=== PATIENT | male | born 1990 | race Hispanic/Latino ===

== ENCOUNTER 2023-04-10 22:43 | Emergency (ER) | payer SELFPAY ==
--- OUTSIDE RECORDS SUMMARY | 2023-04-10 22:45 | XMS REPORT | Continuity of Care Document ---
:1990 Author Organization [facility] t Address [address] [place] [id number] Care Team Providers Name Role Phone Unavailable Unavailable Unavailable Problems This patient has no known problems. Allergies, Adverse Reactions, Alerts This patient has no known allergies or adverse reactions. Medications This patient has no known medications. Procedures This patient has no known procedures. Results This patient has no known results.
--- NOTE | 2023-04-10 23:22 | ER ---
Nurse's Notes [facility] Name: Kit Zhu Jr Age: 32 yrs Sex: Male : 1990 Arrival Date: 04/10/2023 Time: 22:43 Bed 7 Private MD: Diagnosis: Low back pain Presentation: 04/10 22:54 Chief complaint: Patient states: "1 week ago, I woke up to back pain on my left side. mb9 It starting radiating down my left leg and hurts when I bend or turn certain ways". Coronavirus screen: Vaccine status: Patient reports being unvaccinated. Ebola Screen: No symptoms or risks identified at this time. Initial Sepsis Screen: Does the patient meet any 2 criteria? No. Patient's initial sepsis screen is negative. Does the patient have a suspected source of infection? No. Patient's initial sepsis screen is negative. Risk Assessment: Do you want to hurt yourself or someone else? Patient reports no desire to harm self or others. Onset of symptoms was 2022. 22:54 Method Of Arrival: Ambulatory mb9 22:54 Acuity: ENRICO 4 mb9 Triage Assessment: 22:57 General: Appears in no apparent distress. Behavior is cooperative. Pain: Complains of mb9 pain in back Pain radiates to left leg Pain began suddenly, Is intermittent, Aggravated by repositioning. Neuro: Sy Agitation-Sedation Scale (RASS): 0 - Alert and Calm Level of Consciousness is awake, alert, obeys commands, Oriented to person, place, time, situation, Appropriate for age. Cardiovascular: Patient's skin is warm and dry. Respiratory: Airway is patent Respiratory effort is even, unlabored, Respiratory pattern is regular, symmetrical. : Denies burning with urination, urinary frequency, urgency. Derm: Skin is pink, warm \\T\\ dry. Musculoskeletal: Range of motion: intact in all extremities, Reports pain in back. Historical: - Allergies: 22:56 NKA; mb9 - Home Meds: 22:56 None [Active]; mb9 - PMHx: 22:56 epilepsy; mb9 - PSHx: 22:56 None; mb9 - Immunization history:: Adult Immunizations up to date. - Social history:: Smoking status: Reported history of juuling and/or vaping. Screenin:58 [facility] ED Fall Risk Assessment (Adult) History of falling in the last 3 months, mb9 including since admission No falls in past 3 months (0 pts) Confusion or Disorientation No (0 pts) Intoxicated or Sedated No (0 pts) Impaired Gait No (0 pts) Mobility Assist Device Used No (0 pt) Altered Elimination No (0 pt) Score/Fall Risk Level 0 - 2 = Low Risk Oriented to surroundings, Maintained a safe environment, Educated pt \\T\\ family on fall prevention, incl call for assistance when getting out of bed. Abuse screen: Denies threats or abuse. Nutritional screening: No deficits noted. Tuberculosis screening: No symptoms or risk factors identified. Assessment: 22:58 Reassessment: see triage assessment. mb9 Vital Signs: 22:54 BP 137 / 102; Pulse 83; Resp 20; Temp 98.4; Pulse Ox 98% on R/A; Weight 136.08 kg; mb9 Height 6 ft. 0 in. ; Pain 8/10; 22:54 Body Mass Index 40.69 (136.08 kg, 182.88 cm) mb9 22:54 Pain Scale: Adult mb9 ED Course: 22:47 Patient arrived in ED. ja2 22:56 Triage completed. mb9 22:56 Arm band placed on. mb9 22:58 Placed in gown. Bed in low position. Call light in reach. Side rails up X 1. Client mb9 placed on continuous cardiac and pulse oximetry monitoring. NIBP monitoring applied. 23:00 Luís Irwin PA is PHCP. cp 23:00 Ronald Ramos MD is Attending Physician. cp 23:28 Silviano Stauffer, ARIELA is Primary Nurse. rv 23:30 No provider procedures requiring assistance completed. Patient did not have IV access ll3 during this emergency room visit. Administered Medications: 23:30 Drug: Lidoderm Topical Patch 5 % (700 mg/patch) 1 patches Route: Topical; Site: ll3 affected area; 23:30 Follow up: Response: Medication administered at discharge. ll3 Medication: 22:58 VIS not applicable for this client. mb9 Outcome: 23:22 Discharge ordered by . cp 23:30 Discharged to home ambulatory. ll3 23:30 Condition: stable 23:30 Discharge instructions given to patient, Instructed on discharge instructions, follow up and referral plans. medication usage, Demonstrated understanding of instructions, follow-up care, medications, Prescriptions given X 2. 23:30 Patient left the ED. ll3 Signatures: Luís Irwin PA PA cp Vicente, Ronaldo, RN RN Anisha Gallo Lynsea, RN RN ll3 Daysi Vora RN RN mb9
--- NOTE | 2023-04-10 23:22 | EDPHYS ---
Physician Documentation [facility] Name: Kit Zhu Jr Age: 32 yrs Sex: Male : 1990 Arrival Date: 04/10/2023 Time: 22:43 Bed 7 Private MD: ED Physician Ronald Ramos HPI: 04/10 23:15 This 32 yrs old Male presents to ER via Ambulatory with complaints of Back cp Pain, Leg Pain. 23:15 The patient presents with pain that is acute, with no known mechanism of injury. The cp symptoms are located in the left lower back. Onset: The symptoms/episode began/occurred 1 week(s) ago. 1 episode where pain radiated down back of left upper leg. Associated signs and symptoms: Pertinent negatives: abdominal pain, constipation, dysuria, fever, hematuria, incontinence, numbness, tingling, urinary retention, weakness. The problem was sustained from unknown cause, started 1 week ago upon awakening. Modifying factors: the patient symptoms are aggravated by bending. Severity of symptoms: in the emergency department the symptoms have improved, markedly, patient reports no pain currently. 23:15 Patient denies fever, chills, history of IV drug use. cp Historical: - Allergies: 22:56 NKA; mb9 - Home Meds: 22:56 None [Active]; mb9 - PMHx: 22:56 epilepsy; mb9 - PSHx: 22:56 None; mb9 - Immunization history:: Adult Immunizations up to date. - Social history:: Smoking status: Reported history of juuling and/or vaping. ROS: 23:20 Constitutional: Negative for body aches, chills, fever, poor PO intake. cp 23:20 Respiratory: Negative for cough, shortness of breath, wheezing. 23:20 Abdomen/GI: Negative for abdominal pain, nausea, vomiting, and diarrhea, constipation, bowel incontinence. 23:20 Back: Positive for pain with movement, of the left low back, Negative for injury or acute deformity, decreased range of motion. 23:20 Cardiovascular: Negative for chest pain, palpitations. cp 23:20 : Negative for urinary symptoms, hematuria, difficulty urinating, bladder incontinence, testicular pain 23:20 Skin: Negative for rash. 23:20 Neuro: Negative for dizziness, numbness, tingling, weakness. 23:20 All other systems are negative. Exam: 23:21 Head/Face: Normocephalic, atraumatic. cp 23:21 Constitutional: The patient appears in no acute distress, alert, awake, non-toxic, well developed, well nourished, obese. 23:21 Eyes: Periorbital structures: appear normal, Conjunctiva: normal, no exudate, no cp injection, Sclera: no appreciated abnormality, Lids and lashes: appear normal, bilaterally. 23:21 ENT: External ear(s): are unremarkable, Nose: is normal, Mouth: Lips: moist, Oral mucosa: moist, Posterior pharynx: is normal, airway is patent, no erythema, no exudate. 23:21 Neck: ROM/movement: is normal, is supple, without pain, no range of motions limitations. 23:21 Chest/axilla: Inspection: normal. 23:21 Cardiovascular: Rate: normal, Rhythm: regular. 23:21 Respiratory: the patient does not display signs of respiratory distress, Respirations: normal, no use of accessory muscles, no retractions, labored breathing, is not present, Breath sounds: are clear throughout, no decreased breath sounds, no stridor, no wheezing. 23:21 Abdomen/GI: Inspection: obese Palpation: abdomen is soft and non-tender, in all quadrants. 23:21 Back: pain, is absent, of the left low back, ROM is normal. 23:21 Neuro: Orientation: to person, place \T\ time. Mentation: is normal, Motor: moves all fours, strength is normal, Sensation: is normal, Gait: is steady, at a normal pace, without difficulty, Deep tendon reflexes are 2+ (normal) in the right patellar, right Achilles, left patellar and left Achilles. Vital Signs: 22:54 BP 137 / 102; Pulse 83; Resp 20; Temp 98.4; Pulse Ox 98% on R/A; Weight 136.08 kg; mb9 Height 6 ft. 0 in. ; Pain 8/10; 22:54 Body Mass Index 40.69 (136.08 kg, 182.88 cm) mb9 22:54 Pain Scale: Adult mb9 MDM: 23:00 Patient medically screened. cp 23:22 Data reviewed: vital signs, nurses notes. cp 23:22 Differential diagnosis: ruptured disc, Ureterolithiasis muscle strain, bulging disc, cp sciatica. Test considered but Not performed: X-ray: lumbar spine. Counseling: I had a detailed discussion with the patient and/or guardian regarding: the historical points, exam findings, and any diagnostic results supporting the discharge/admit diagnosis, to return to the emergency department if symptoms worsen or persist or if there are any questions or concerns that arise at home. Administered Medications: 23:30 Drug: Lidoderm Topical Patch 5 % (700 mg/patch) 1 patches Route: Topical; Site: ll3 affected area; 23:30 Follow up: Response: Medication administered at discharge. ll3 Disposition Summary: 04/10/23 23:22 Discharge Ordered Location: Home cp Problem: new cp Symptoms: have improved cp Condition: Stable cp Diagnosis - Low back pain cp Followup: cp - With: Private Physician - When: 2 - 3 days - Reason: Worsening of condition Discharge Instructions: - Discharge Summary Sheet cp - Acute Back Pain, Adult cp Forms: - Medication Reconciliation Form cp - Thank You Letter cp - Antibiotic Education cp - Prescription Opioid Use cp Prescriptions: - Cyclobenzaprine 10 mg Oral Tablet - take 1 tablet by ORAL route every 8 hours As needed; 30 tablet; Refills: 0, cp Product Selection Permitted - Diclofenac Sodium 75 mg Oral Tablet Sustained Release - take 1 tablet by ORAL route 2 times per day; 30 tablet; Refills: 0, Product cp Selection Permitted Addendum: 04/12/2023 02:36 Co-signature as Attending Physician, Ronald Ramos MD I agree with the assessment s p4 and plan of care. I reviewed the patient's care provided by the Advanced Practice Provider and agree with the diagnosis and treatment plan. Signatures: Luís Irwin PA PA cp Livier Post RN RN ll3 Daysi Vora RN RN mb9 Ronald Ramos MD MD sp4 Corrections: (The following items were deleted from the chart) 04/11 23:13 04/10 23:20 Abdomen/GI: Negative for abdominal pain, nausea, vomiting, and diarrhea, cp cp 04/11 23:17 04/10 23:23 Eyes: Periorbital structures: appear normal, Conjunctiva: normal, no cp exudate, no injection, Sclera: no appreciated abnormality, Lids and lashes: appear normal, bilaterally, cp 04/11 23:04/10 23:23 ENT: External ear(s): are unremarkable, Nose: is normal, Mouth: Lips: cp moist, Oral mucosa: moist, Posterior pharynx: is normal, airway is patent, no erythema, no exudate, cp 04/11 23:04/10 23:23 Neck: ROM/movement: is normal, is supple, without pain, no range of motions cp limitations, cp 04/11 23:04/10 23:23 Chest/axilla: Inspection: normal, cp cp 04/11 23:04/10 23:23 Cardiovascular: Rate: normal, Rhythm: regular, cp cp 04/11 23:04/10 23:23 Respiratory: the patient does not display signs of respiratory distress, cp Respirations: normal, no use of accessory muscles, no retractions, labored breathing, is not present, Breath sounds: are clear throughout, no decreased breath sounds, no stridor, no wheezing, cp 04/11 23:04/10 23:23 Abdomen/GI: Inspection: obese Palpation: abdomen is soft and non-tender, in cp all quadrants, cp 04/11 23:04/10 23:23 Back: pain, is absent, of the left low back, ROM is normal, cp cp 04/11 23:04/10 23:23 Neuro: Orientation: to person, place \T\ time. Mentation: is normal, Motor: cp moves all fours, strength is normal, Sensation: is normal, Gait: is steady, at a normal pace, without difficulty, Deep tendon reflexes are 2+ (normal) in the right patellar, right Achilles, left patellar and left Achilles, cp 04/11 23:04/10 23:15 Severity of symptoms: in the emergency department the symptoms have cp improved, moderately, cp
[2023-04-10] MEDS ORDERED: LIDOCAINE 4% PATCH ONE (23:34)
[2023-04-11 00:36] VITALS: BP 137/102; TEMP 98.4; O2SAT 98
== END 2023-04-10 23:30 | disposition home or self-care (01) ==
LOC: ER 22:43
DX: M54.50 Low back pain, unspecified (principal)
CPT/HCPCS: 99283; J2001

== ENCOUNTER 2023-05-20 00:17 | Emergency (ER) | payer SELFPAY ==
--- OUTSIDE RECORDS SUMMARY | 2023-05-20 00:19 | XMS REPORT | Continuity of Care Document ---
:1990 Author Organization [facility] t Address [address] [place] [id number] Care Team Providers Name Role Phone Unavailable Unavailable Unavailable Problems This patient has no known problems. Allergies, Adverse Reactions, Alerts This patient has no known allergies or adverse reactions. Medications This patient has no known medications. Procedures This patient has no known procedures. Results This patient has no known results.
[2023-05-20] MEDS ORDERED: FAMOTIDINE 20 MG TAB ONE (00:53)
[2023-05-20] MEDS ORDERED: DIPHENHYDRAMINE 25 MG TAB/CAP ONE (00:53)
[2023-05-20] MEDS ORDERED: predniSONE 20 MG TAB ONE (00:54)
--- NOTE | 2023-05-20 01:40 | EDPHYS ---
Physician Documentation [facility] Name: Kit Zhu Jr Age: 32 yrs Sex: Male : 1990 Arrival Date: 05/20/2023 Time: 00:17 Bed 8 Private MD: ED Physician Lam Ordoñez HPI: 05/20 00:45 This 32 yrs old Male presents to ER via Ambulatory with complaints of Allergic cp Reaction. 00:45 The patient presents with throat closing, generalized burning. Onset: The cp symptoms/episode began/occurred suddenly, just prior to arrival. Associated signs and symptoms: Pertinent positives: dysphagia, Pertinent negatives: abdominal pain, chest pain, fever, hives, rash, vomiting. Possible causes: C4 energy drink that was different flavor than he usually consumes. At home the patient or guardian has treated the symptoms with nothing. Severity of symptoms: in the emergency department the symptoms have improved mildly. 00:45 The patient has not experienced similar symptoms in the past. cp Historical: - Allergies: 00:40 Shrimp; jb4 - Home Meds: 00:40 None [Active]; jb4 - PMHx: 00:40 epilepsy; jb4 - PSHx: 00:40 None; jb4 - Immunization history:: Adult Immunizations up to date. - Social history:: Smoking status: Patient denies any tobacco usage or history of. ROS: 00:50 Constitutional: Negative for body aches, chills, fever, poor PO intake. cp 00:50 Eyes: Negative for injury, pain, redness, and discharge. cp 00:50 ENT: Negative for drainage from ear(s), ear pain, sore throat, difficulty swallowing, difficulty handling secretions. 00:50 Cardiovascular: Negative for chest pain, edema, palpitations. 00:50 Respiratory: Negative for cough, shortness of breath, wheezing. 00:50 Abdomen/GI: Negative for abdominal pain, nausea, vomiting, and diarrhea. 00:50 Skin: Negative for rash. 00:50 Neuro: Negative for altered mental status, dizziness, headache, syncope, weakness. 00:50 All other systems are negative. Exam: 00:55 Constitutional: The patient appears in no acute distress, alert, awake, comfortable, cp non-diaphoretic, non-toxic, well developed, well nourished, obese. 00:55 Head/Face: Normocephalic, atraumatic. cp 00:55 Eyes: Periorbital structures: appear normal, Conjunctiva: normal, no exudate, no injection, Sclera: no appreciated abnormality, Lids and lashes: appear normal, bilaterally. 00:55 ENT: External ear(s): are unremarkable, Nose: is normal, Mouth: Lips: moist, Oral mucosa: pink and intact, moist, Posterior pharynx: is normal, airway is patent, no erythema, no exudate. 00:55 Neck: ROM/movement: is normal, is supple, without pain, no range of motions limitations, no meningismus, no nuchal rigidity. 00:55 Chest/axilla: Inspection: normal. 00:55 Cardiovascular: Rate: normal, Rhythm: regular. 00:55 Respiratory: the patient does not display signs of respiratory distress, Respirations: normal, no use of accessory muscles, no retractions, labored breathing, is not present, Breath sounds: are clear throughout, no decreased breath sounds, no stridor, no wheezing. 00:55 Abdomen/GI: Exam negative for discomfort, distension, guarding, Inspection: obese 00:55 Skin: no rash present. 00:55 Neuro: Orientation: to person, place \T\ time. Mentation: is normal, Motor: moves all fours, strength is normal, Sensation: is normal. Vital Signs: 00:37 BP 180 / 115; Pulse 88; Resp 16; Temp 98.5(O); Pulse Ox 95% on R/A; Weight 136.08 kg jb4 (R); Height 6 ft. 0 in. ; Pain 0/10; 01:35 BP 123 / 91; Pulse 80; Resp 16; Pulse Ox 98% on R/A; jb4 00:37 Body Mass Index 40.69 (136.08 kg, 182.88 cm) jb4 00:37 Pain Scale: Adult jb4 MDM: 00:31 Patient medically screened. cp 01:40 Data reviewed: vital signs, nurses notes. cp 01:40 Differential diagnosis: anaphylaxis, angioedema, urticaria. Consideration of cp Admission/Observation Escalation of care including admission/observation considered. I considered the following discharge prescriptions or medication management in the emergency department Medications were administered in the Emergency Department. See MAR. Counseling: I had a detailed discussion with the patient and/or guardian regarding: the historical points, exam findings, and any diagnostic results supporting the discharge/admit diagnosis, to return to the emergency department if symptoms worsen or persist or if there are any questions or concerns that arise at home. Response to treatment: the patient's symptoms have markedly improved after treatment, and as a result, I will discharge patient. Administered Medications: 00:48 Drug: diphenhydrAMINE PO 50 mg Route: PO; jb4 00:48 Drug: predniSONE PO 60 mg Route: PO; jb4 00:48 Drug: Famotidine PO 20 mg Route: PO; jb4 Disposition Summary: 05/20/23 01:40 Discharge Ordered Location: Home cp Problem: new cp Symptoms: have improved cp Condition: Stable cp Diagnosis - Allergy to other foods cp Followup: cp - With: Private Physician - When: 1 - 2 days - Reason: Recheck today's complaints Discharge Instructions: - Discharge Summary Sheet cp - Food Allergy cp Forms: - Medication Reconciliation Form cp - Thank You Letter cp - Antibiotic Education cp - Prescription Opioid Use cp - [email or web address] cp - Work release form jb4 Prescriptions: - Pepcid 20 mg Oral Tablet - take 1 tablet by ORAL route every 12 hours for 5 days; 10 tablet; Refills: 0, cp Product Selection Permitted - Zyrtec 10 mg Oral Tablet - take 1 tablet by ORAL route once daily As needed; 20 tablet; Refills: 0, cp Product Selection Permitted - Prednisone 20 mg Oral Tablet - take 3 tablet by ORAL route once daily for 5 days; 15 tablet; Refills: 0, cp Product Selection Permitted Signatures: Luís Irwin PA PA cp Bryson, James, RN RN jb4
--- NOTE | 2023-05-20 01:40 | ER ---
Nurse's Notes [facility] Name: Kit Zhu Jr Age: 32 yrs Sex: Male : 1990 Arrival Date: 05/20/2023 Time: 00:17 Bed 8 Private MD: Diagnosis: Allergy to other foods Presentation: 05/20 00:37 Chief complaint: Patient states: I drank a C4 energy drink and it was a different jb4 flavor than normal. I felt like my throat was closing and I had burning goose bumps. I no longer have the burn and my throat is feeling better. Coronavirus screen: At this time, the client does not indicate any symptoms associated with coronavirus-19. Ebola Screen: No symptoms or risks identified at this time. Onset: The symptoms/episode began/occurred suddenly. Anaphylaxis evaluation, Pt reports tightening of the throat. Airway is clear. Initial Sepsis Screen: Does the patient meet any 2 criteria? No. Patient's initial sepsis screen is negative. Does the patient have a suspected source of infection? No. Patient's initial sepsis screen is negative. Risk Assessment: Do you want to hurt yourself or someone else? Patient reports no desire to harm self or others. Onset of symptoms was May 20, 2023. Transition of care: patient was not received from another setting of care. 00:37 Method Of Arrival: Ambulatory jb4 00:37 Acuity: ENRICO 3 jb4 Historical: - Allergies: 00:40 Shrimp; jb4 - Home Meds: 00:40 None [Active]; jb4 - PMHx: 00:40 epilepsy; jb4 - PSHx: 00:40 None; jb4 - Immunization history:: Adult Immunizations up to date. - Social history:: Smoking status: Patient denies any tobacco usage or history of. Screenin:41 [facility] ED Fall Risk Assessment (Adult) History of falling in the last 3 months, jb4 including since admission No falls in past 3 months (0 pts) Confusion or Disorientation No (0 pts) Score/Fall Risk Level 0 - 2 = Low Risk Oriented to surroundings, Maintained a safe environment. Abuse screen: Denies threats or abuse. Nutritional screening: No deficits noted. Tuberculosis screening: No symptoms or risk factors identified. Assessment: 00:41 General: Appears in no apparent distress. comfortable, Behavior is calm, cooperative, jb4 appropriate for age. Pain: Denies pain. Neuro: Level of Consciousness is awake, alert, obeys commands, Oriented to person, place, time, situation. Cardiovascular: Patient's skin is warm and dry. Respiratory: Airway is patent Respiratory effort is even, unlabored, Respiratory pattern is regular, symmetrical. GI: No signs and/or symptoms were reported involving the gastrointestinal system. : EENT: Throat is clear. Derm: No signs and/or symptoms reported regarding the dermatologic system. Musculoskeletal: Circulation, motion, and sensation intact. Range of motion: intact in all extremities. 01:35 Reassessment: Patient appears in no apparent distress at this time. Patient and/or jb4 family updated on plan of care and expected duration. Pain level reassessed. Patient is alert, oriented x 3, equal unlabored respirations, skin warm/dry/pink. Vital Signs: 00:37 BP 180 / 115; Pulse 88; Resp 16; Temp 98.5(O); Pulse Ox 95% on R/A; Weight 136.08 kg jb4 (R); Height 6 ft. 0 in. ; Pain 0/10; 01:35 BP 123 / 91; Pulse 80; Resp 16; Pulse Ox 98% on R/A; jb4 00:37 Body Mass Index 40.69 (136.08 kg, 182.88 cm) jb4 00:37 Pain Scale: Adult jb4 ED Course: 00:26 Patient arrived in ED. jj6 00:27 Luís Irwin PA is PHCP. cp 00:27 Lam Ordoñez MD is Attending Physician. cp 00:37 Suresh Morillo, ARIELA is Primary Nurse. jb4 00:40 Triage completed. jb4 00:40 Arm band placed on right wrist. jb4 00:41 Patient has correct armband on for positive identification. Bed in low position. Call jb4 light in reach. Side rails up X 1. Client placed on continuous cardiac and pulse oximetry monitoring. NIBP monitoring applied. 01:44 No provider procedures requiring assistance completed. Patient did not have IV access jb4 during this emergency room visit. Administered Medications: 00:48 Drug: diphenhydrAMINE PO 50 mg Route: PO; jb4 00:48 Drug: predniSONE PO 60 mg Route: PO; jb4 00:48 Drug: Famotidine PO 20 mg Route: PO; jb4 Medication: 00:41 VIS not applicable for this client. jb4 Outcome: 01:40 Discharge ordered by . debbie 01:44 Discharged to home ambulatory. jb4 01:44 Condition: stable 01:44 Discharge instructions given to patient, Instructed on discharge instructions, follow up and referral plans. medication usage, Demonstrated understanding of instructions, follow-up care, medications, Prescriptions given X 3. 01:44 Patient left the ED. jb4 Signatures: Luís Irwin PA PA cp Bryson, James, RN RN jb4 Dana Shaw jj6
[2023-05-20 01:49] VITALS: TEMP 98.5
[2023-05-20 01:51] VITALS: BP 123/91; O2SAT 98
== END 2023-05-20 01:44 | disposition home or self-care (01) ==
LOC: ER 00:17
DX: R13.10 Dysphagia, unspecified (principal); Z91.018 Allergy to other foods
CPT/HCPCS: 99283; J7512

== ENCOUNTER 2024-07-18 01:26 | Emergency (ER) | payer OTHER, SELFPAY ==
--- OUTSIDE RECORDS SUMMARY | 2024-07-18 01:28 | XMS REPORT | Continuity of Care Document ---
Author Name Unknown Address [address] [place] [address] [place] [address] [employer] Address [address] [facility] [address] [place] [address] Care Team Providers Care Pastry Cook Helper Name Role Phone Unavailable Unavailable Unavailable
[2024-07-18] MEDS ORDERED: ACETAMINOPHEN 500 MG TAB ONE (01:55)
[2024-07-18] MEDS ORDERED: BENZONATATE 100 MG CAP PO ONE (01:55)
[2024-07-18] MEDS ORDERED: IBUPROFEN 400 MG TAB ONE (01:55)
[2024-07-18] MEDS ORDERED: DIPHENHYDRAMINE 25 MG TAB/CAP ONE (01:55)
[2024-07-18] MEDS ORDERED: LOSARTAN POTASSIUM 50 MG TABLET ONE (01:56)
[2024-07-18] MEDS ORDERED: GUAIFENESIN/DM 5 ML UCUP ONE (01:56)
[2024-07-18] MEDS ORDERED: CEPHALEXIN 250 MG CAP ONE (01:58)
[2024-07-18 02:18] LABS: SARS-CoV-2 Antigen CONTROL BLUE LINE VIS/BG OK; SARS-CoV-2 Antigen Rapid Res Negative (Negative)
[2024-07-18 02:18] LABS: Absolute Basophils 0.1 K/uL (0-0.5); Absolute Eosinophils 0.2 K/uL (0-0.5); Absolute Lymphocytes (CBC) 1.6 K/uL (0.7-4.9); Absolute Monocytes 0.7 K/uL (0.1-1.3); Absolute Neutrophil 6.3 K/uL (1.8-8.0); Basophils % 0.8 % (0-1.3); Hematocrit 45.7 % (39.6-49.0); Hemoglobin 15.7 g/dL (13.6-17.9); Lymphocytes % 18.5 % (15.3-44.8); MCH 29.9 pg (27.0-35.0); MCHC 34.3 g/dL (32.0-36.0); MCV 87.1 fL (80-100); MPV 9.2 fL (7.6-11.3); Monocytes % 7.5 % (3.3-12.3); Neutrophils % 71.2 % (41.7-73.7); Nucleated Red Blood Cells % 0.2 % (0-0); Platelets 237 thou/uL (152-406); RBC Red Blood Cell Count 5.24 M/uL (4.33-5.43); Red Cell Distribution Width 13.1 % (12.1-15.2)
[2024-07-18 02:31] LABS: Albumin 3.9 g/dL (3.4-5.0); Anion Gap 9.7 mEq/L (5.0-15.0); Bilirubin Total 0.4 mg/dL (0.2-1.0); Potassium 3.7 mEq/L (3.5-5.1); Protein, Total 7.9 g/dL (6.4-8.2)
--- NOTE | 2024-07-18 02:45 | EDPHYS ---
Physician Documentation [facility] Name: Kit Zhu Jr Age: 34 yrs Sex: Male : 1990 Arrival Date: 07/18/2024 Time: 01:26 Bed 6 Private MD: ED Physician Ronald Ramos HPI: 07/18 01:30 This 34 yrs old Male presents to ER via Unassigned with complaints of sp4 Shortness Of Breath, Cough, Congestion, Sore Throat, Dizziness. 03:55 34-year-old male with history of uncontrolled hypertension presents with 4 days of sp4 cough congestion short of breath and sore throat.. Historical: - Allergies: 01:44 NKA; jj7 - PMHx: 01:44 epilepsy; Hypertensive disorder; jj7 - PSHx: 01:44 None; jj7 - Immunization history:: Adult Immunizations not up to date, Client reports having NOT received the Covid vaccine. - Infectious Disease History:: Denies. - Social history:: Smoking status: Reported history of juuling and/or vaping. Patient/guardian denies using alcohol, street drugs. - Family history:: not pertinent. ROS: 03:55 Constitutional: Negative for fever, chills, and weight loss, positive cough, positive sp4 congestion, positive sore throat, positive shortness of breath 03:55 All other systems are negative, Exam: 03:55 Constitutional: This is a well developed, well nourished patient who is awake, alert, sp4 and in no acute distress. Head/Face: Normocephalic, atraumatic. Eyes: Pupils equal round and reactive to light, extra-ocular motions intact. Lids and lashes normal. Conjunctiva and sclera are not injected. Cornea within normal limits. Periorbital areas with no swelling, redness, or edema. ENT: Nares patent. No nasal discharge, no septal abnormalities noted. Tympanic membranes are normal and external auditory canals are clear. Oropharynx with no redness, swelling, or masses, exudates, or evidence of obstruction, uvula midline. Mucous membranes moist. Neck: Trachea midline, no thyromegaly or masses palpated, and no cervical lymphadenopathy. Supple, full range of motion without nuchal rigidity, or vertebral point tenderness. Chest/axilla: Normal chest wall appearance and motion. Nontender with no deformity. No lesions are appreciated. Cardiovascular: Regular rate and rhythm with a normal S1 and S2. No gallops, murmurs, or rubs. Normal PMI, no JVD. No pulse deficits. Respiratory: Lungs have equal breath sounds bilaterally, clear to auscultation and percussion. No rales, rhonchi or wheezes noted. No increased work of breathing, no retractions or nasal flaring. Abdomen/GI: Soft, with normal bowel sounds. No distension or tympany. No guarding or rebound. No evidence of tenderness throughout. Back: No spinal tenderness. No costovertebral tenderness. Skin: Warm, dry with normal turgor. Normal color with no rashes, no lesions, and no evidence of cellulitis. MS/ Extremity: Pulses equal, no cyanosis. Neurovascular intact. Full, normal range of motion. Neuro: Awake and alert, GCS 15, oriented to person, place, time, and situation. Cranial nerves II-XII grossly intact. Motor strength 5/5 in all extremities. Sensory grossly intact. Psych: Awake, alert, with orientation to person, place and time. Behavior, mood, and affect are within normal limits 04:21 ECG was reviewed by the Attending Physician. EKG at 0 146 reveals normal sinus rhythm sp4 rate 82. Otherwise normal EKG Vital Signs: 01:41 BP 174 / 112; Pulse 86; Resp 16; Temp 97.4; Pulse Ox 98% ; Weight 136.08 kg; Height 6 jj7 ft. 0 in. ; 02:35 BP 161 / 102; Pulse 78; Resp 17 S; Temp 98.1(O); Pulse Ox 98% on R/A; ha1 01:41 Body Mass Index 40.69 (136.08 kg, 182.88 cm) jj7 [place] Coma Score: 03:55 Eye Response: spontaneous(4). Motor Response: obeys commands(6). Verbal Response: sp4 oriented(5). Total: 15. MDM: 02:45 Patient medically screened. sp4 03:55 Differential diagnosis: Anxiety Reaction asthma, Bronchitis Psychogenic reactive airway sp4 disease. Data reviewed: vital signs, nurses notes, old medical records, lab test result(s), CBC, electrolytes. ED course: Patient stable for discharge home with management for acute bronchitis also losartan for history of uncontrolled hypertension. Advise close follow-up with primary care physician for hypertension management. . 07/18 01:29 Order name: SARS RAPID; Complete Time: 02:40 sp4 07/18 01:42 Order name: CBC with Diff; Complete Time: 02:40 sp4 07/18 01:42 Order name: CMP; Complete Time: 02:40 sp4 07/18 01:42 Order name: IV Saline Lock; Complete Time: 02:03 sp4 07/18 01:42 Order name: Labs collected and sent; Complete Time: 02: sp4 07/18 01:50 Order name: EKG - Nurse/Tech; Complete Time: 01:50 ha1 EC:21 Rate is 82 beats/min. Rhythm is regular, Normal Sinus Rhythm. QRS [place] is Normal. RI sp4 interval is normal. QRS interval is normal. QT interval is normal. No Q waves. T waves are Normal. No ST changes noted. Clinical impression: Normal ECG. Interpreted by me. Reviewed by me. Administered Medications: 02:01 Drug: Acetaminophen PO 1000 mg PO once Route: PO; 7 02:30 Follow up: Response: No adverse reaction; Marked relief of symptoms ha1 02:01 Drug: Tessalon Perle PO 200 mg PO once Route: PO; 7 02:30 Follow up: Response: No adverse reaction; Marked relief of symptoms ha1 02:01 Drug: Cephalexin PO 500 mg PO once Route: PO; j7 02:30 Follow up: Response: No adverse reaction ha1 02:02 Drug: Losartan PO 100 mg PO once Route: PO; j7 02:30 Follow up: Response: No adverse reaction; Blood pressure is lowered ha1 02:02 Drug: diphenhydrAMINE PO 25 mg PO once Route: PO; j7 02:30 Follow up: Response: No adverse reaction; Marked relief of symptoms ha1 02:02 Drug: Dextromethorphan-Guaifenesin PO Liquid 10 mg-100 mg/5 mL 10 ml PO once Route: PO; j7 02:30 Follow up: Response: No adverse reaction; Marked relief of symptoms ha1 02:02 Drug: Ibuprofen PO 800 mg PO once Route: PO; jj7 02:30 Follow up: Response: No adverse reaction; Marked relief of symptoms ha1 Disposition Summary: 07/18/24 02:45 Discharge Ordered Notes: Location: Home sp4 Problem: new sp4 Symptoms: have improved sp4 Condition: Stable sp4 Diagnosis - Acute pharyngitis, unspecified sp4 - Acute bronchitis, unspecified sp4 - Essential (primary) hypertension sp4 Followup: sp4 - With: Private Physician - When: 7 - 10 days - Reason: Recheck today's complaints Discharge Instructions: - Discharge Summary Sheet sp4 - Hypertension, Adult, [id number] sp4 Forms: - Patient Portal Instructions sp4 Prescriptions: - dextromethorphan-guaifenesin 60-1,200 mg Oral Tablet, Extended Release 12 hr - take 1 tablet ORAL route every 12 hours as needed for flu symptoms; 40 tablet; sp4 Refills: 0, Product Selection Permitted - losartan 100 mg Oral tablet - take 1 tablet ORAL route every morning; 90 tablet; Refills: 0, Product sp4 Selection Permitted - Cephalexin 500 mg Oral Capsule - take 1 capsule ORAL route every 12 hours for 10 days; 20 capsule; Refills: 0, sp4 Product Selection Permitted - Ibuprofen 800 mg Oral Tablet - take 1 tablet ORAL route every 8 hours As needed take with food; 30 tablet; sp4 Refills: 0, Product Selection Permitted - Claritin 10 mg Oral tablet - take 1 tablet ORAL route once daily As needed; 30 tablet; Refills: 0, Product sp4 Selection Permitted Signatures: Dispatcher [employer] Nery Saba RN RN ha1 Jack Hanna RN RN jj7 Ronald Ramos MD MD sp4
--- NOTE | 2024-07-18 02:45 | ER ---
Nurse's Notes [facility] Name: Kit Zhu Jr Age: 34 yrs Sex: Male : 1990 Arrival Date: 07/18/2024 Time: 01:26 Bed 6 Private MD: Diagnosis: Acute pharyngitis, unspecified;Acute bronchitis, unspecified;Essential (primary) hypertension Presentation: 07/18 01:41 Chief complaint: Patient states: SORE THROAT, BODY ACHES, CONGESTION X4DAY. STARTED jj7 FEELING SOB AND DIZZY TONIGHT. Coronavirus screen: congestion, shortness of breath, sore throat. Ebola Screen: No symptoms or risks identified at this time. Initial Sepsis Screen: Does the patient meet any 2 criteria? No. Patient's initial sepsis screen is negative. Does the patient have a suspected source of infection? No. Patient's initial sepsis screen is negative. Risk Assessment: Do you want to hurt yourself or someone else? Patient reports no desire to harm self or others. Onset of symptoms was July 14, 2024. 01:41 Method Of Arrival: Ambulatory [facility] 01:41 Acuity: ENRICO 3 jj7 Triage Assessment: 01:41 General: Appears in no apparent distress. comfortable, Behavior is calm, cooperative, jj7 appropriate for age. Neuro: Reports dizziness, since LAST NIGHT. Respiratory: Reports shortness of breath Onset: The symptoms/episode began/occurred yesterday. Respiratory: Airway is patent Trachea midline Respiratory effort is even, unlabored, Respiratory pattern is regular, symmetrical, the patient has mild shortness of breath. Historical: - Allergies: 01:44 NKA; jj7 - PMHx: 01:44 epilepsy; Hypertensive disorder; jj7 - PSHx: 01:44 None; jj7 - Immunization history:: Adult Immunizations not up to date, Client reports having NOT received the Covid vaccine. - Infectious Disease History:: Denies. - Social history:: Smoking status: Reported history of juuling and/or vaping. Patient/guardian denies using alcohol, street drugs. - Family history:: not pertinent. Screenin:41 [facility] ED Fall Risk Assessment (Adult) History of falling in the last 3 months, jj7 including since admission No falls in past 3 months (0 pts) Confusion or Disorientation No (0 pts) Intoxicated or Sedated No (0 pts) Impaired Gait No (0 pts) Mobility Assist Device Used No (0 pt) Altered Elimination No (0 pt) Score/Fall Risk Level 0 - 2 = Low Risk Oriented to surroundings, Maintained a safe environment, Educated pt \T\ family on fall prevention, incl call for assistance when getting out of bed, Assessed \T\ reinforced patient's understanding of fall precautions. Abuse screen: Denies threats or abuse. Nutritional screening: No deficits noted. Tuberculosis screening: No symptoms or risk factors identified. Assessment: 01:41 Respiratory: Airway is patent Breath sounds are clear. jj7 02:30 Reassessment: Patient and/or family updated on plan of care and expected duration. Pain ha1 level reassessed. Patient is alert, oriented x 3, equal unlabored respirations, skin warm/dry/pink. General: Appears comfortable, Behavior is cooperative. Pain: Complains of pain in sore throat. Cardiovascular: Reports shortness of breath, Rhythm is sinus rhythm. 02:30 Reassessment: Patient states feeling better. Patient states symptoms have improved. ha1 03:01 Reassessment: provided education on blood pressure monitoring, medications, and follow ha1 up with PCP. Vital Signs: 01:41 BP 174 / 112; Pulse 86; Resp 16; Temp 97.4; Pulse Ox 98% ; Weight 136.08 kg; Height 6 jj7 ft. 0 in. ; 02:35 BP 161 / 102; Pulse 78; Resp 17 S; Temp 98.1(O); Pulse Ox 98% on R/A; ha1 01:41 Body Mass Index 40.69 (136.08 kg, 182.88 cm) jj7 [place] Coma Score: 03:55 Eye Response: spontaneous(4). Motor Response: obeys commands(6). Verbal Response: sp4 oriented(5). Total: 15. ED Course: :29 Patient arrived in ED. jj6 01:29 Ronald Ramos MD is Attending Physician. sp4 01:33 Jack Hanna RN is Primary Nurse. jj7 01:40 SARS RAPID Sent. jj7 01:41 Arm band placed on right wrist. Patient placed in an exam room, on a stretcher, on jj7 monitoring tech, on pulse oximetry. 01:41 Patient has correct armband on for positive identification. Bed in low position. Call jj7 light in reach. Provided Education on: USE OF CALL GONZALEZ. 01:43 Triage completed. jj7 01:56 Inserted saline lock: 20 gauge in right antecubital area, using aseptic technique. sa1 Blood collected. Flushed with 10 mL NS. 02:03 CBC with Diff Sent. jj7 02:03 CMP Sent. jj7 02:59 No provider procedures requiring assistance completed. IV discontinued, intact, ha1 bleeding controlled, No redness/swelling at site. Pressure dressing applied. Administered Medications: 02:01 Drug: Acetaminophen PO 1000 mg PO once Route: PO; jj7 02:30 Follow up: Response: No adverse reaction; Marked relief of symptoms ha1 02:01 Drug: Tessalon Perle PO 200 mg PO once Route: PO; jj7 02:30 Follow up: Response: No adverse reaction; Marked relief of symptoms ha1 02:01 Drug: Cephalexin PO 500 mg PO once Route: PO; jj7 02:30 Follow up: Response: No adverse reaction ha1 02:02 Drug: Losartan PO 100 mg PO once Route: PO; jj7 02:30 Follow up: Response: No adverse reaction; Blood pressure is lowered ha1 02:02 Drug: diphenhydrAMINE PO 25 mg PO once Route: PO; jj7 02:30 Follow up: Response: No adverse reaction; Marked relief of symptoms ha1 02:02 Drug: Dextromethorphan-Guaifenesin PO Liquid 10 mg-100 mg/5 mL 10 ml PO once Route: PO; jj7 02:30 Follow up: Response: No adverse reaction; Marked relief of symptoms ha1 02:02 Drug: Ibuprofen PO 800 mg PO once Route: PO; jj7 02:30 Follow up: Response: No adverse reaction; Marked relief of symptoms ha1 Medication: 01:41 VIS not applicable for this client. jj7 Outcome: 02:45 Discharge ordered by sp4 02:59 Discharged to home ambulatory, ha1 02:59 Condition: stable 02:59 Discharge instructions given to patient, Instructed on discharge instructions, follow up and referral plans. Demonstrated understanding of instructions, follow-up care, medications, Prescriptions given X 5 03:02 Patient left the ED. ha1 Signatures: Dana Shaw jj6 Nery Corral RN RN ha1 Jack Hanna RN RN jj7 Ronald Ramos MD MD sp4 Sultan Abel [facility]
[2024-07-18 03:17] VITALS: O2SAT 98
[2024-07-18 03:18] VITALS: BP 174/112; TEMP 97.4
--- NOTE | 2024-07-21 17:11 | EKG ---
Test Date: 2024-07-18 Test Time: 01:46:16 Casting Coordinator: MARIO ALBERTO MEASUREMENT RESULTS: Intervals: Rate: 82 [place]: 162 QRSD: 86 QT: 354 QTc: 413 [place]: P: 20 [place]: 162 QRS: 75 T: 73 INTERPRETIVE STATEMENTS: Normal sinus rhythm Nonspecific T wave abnormality Abnormal ECG No previous ECG available for comparison Electronically Signed On 07-21-24 17:01:51 CDT by Dominic Jamil
== END 2024-07-18 03:02 | disposition home or self-care (01) ==
LOC: ER 01:26
DX: J20.9 Acute bronchitis, unspecified (principal); J02.9 Acute pharyngitis, unspecified; I10 Essential (primary) hypertension; Z11.52 Encounter for screening for COVID-19
CPT/HCPCS: 36415; 80053; 85025; 87811; 93005; 99284

== ENCOUNTER 2024-07-21 23:08 | Emergency (ER) | payer OTHER, SELFPAY ==
--- OUTSIDE RECORDS SUMMARY | 2024-07-21 23:10 | XMS REPORT | Continuity of Care Document ---
Author Name Unknown Address [address] [place] [address] [place] [address] thconnect Address [address] [facility] [address] [place] [address] Care Team Providers Care Willower Name Role Phone Unavailable Unavailable Unavailable
--- NOTE | 2024-07-21 23:30 | EDPHYS ---
Physician Documentation [facility] Name: Kit Zhu Jr Age: 34 yrs Sex: Male : 1990 Arrival Date: 07/21/2024 Time: 23:08 Bed 6 Private MD: ED Physician Isaias Rosales HPI: 07/21 23:32 This 34 yrs old Male presents to ER via Ambulatory with complaints of High ec2 Blood Pressure. 23:32 Patient arrives today for asymptomatic hypertension. Patient was seen several days ago, ec2 started on losartan. Patient reports no chest pain or difficulty breathing, denies stroke symptoms. Patient reports no other concerns. States that he saw elevated blood pressure numbers with systolics in the 180s and came in because he was concerned about the number.. Historical: - Allergies: 23:16 NKA; ss 23:16 shrimp; ss - Home Meds: 23:16 Losartan [Active]; unknown abx [Active]; ss - PMHx: 23:16 epilepsy; Hypertensive disorder; ss - PSHx: 23:16 None; ss - Immunization history:: Client reports having NOT received the Covid vaccine. - Infectious Disease History:: Denies. - Social history:: Smoking status: Reported history of juuling and/or vaping. ROS: 23:32 Constitutional: as per hpi ec2 Exam: 23:32 Constitutional: GEN: NAD Head: atraumatic Eyes: EOMI Ears: External ears are ec2 normal. CV: regular rate LUNGS: no respiratory distress ABD: non-distended SKIN: no evidence of rashes MSK: no evidence of trauma Vital Signs: 23:15 Resp 16; Weight 136.08 kg; Height 6 ft. 0 in. ; Pain 0/10; ss 23:31 BP 156 / 102; Pulse 85; Resp 18; Temp 97.3; Pulse Ox 95% on R/A; br2 23:15 Body Mass Index 40.69 (136.08 kg, 182.88 cm) ss 23:15 Pain Scale: Adult ss MDM: 23:11 Patient medically screened. ec2 23:32 Data reviewed: vital signs. ED course: Patient arrives today for asymptomatic blood ec2 pressure. Examination remarkable for well-appearing nontoxic vigorous otherwise in no acute distress with a reassuring examination. Given lack of symptoms, we will forego testing. I used shared decision-making, I doubt endorgan damage given lack of symptoms. Patient also had recent blood work several days ago. Will discharge home, instructed to follow-up primary care and to discuss blood pressure management long-term. . Administered Medications: No medications were administered Disposition Summary: 07/21/24 23:29 Discharge Ordered Condition: Stable ec2 Diagnosis - Asymptomatic Hypertension ec2 Followup: ec2 - With: Private Physician - When: - Reason: Re-evaluation by your physician Discharge Instructions: - Discharge Summary Sheet ec2 Forms: - Medication Reconciliation Form ec2 - Antibiotic Education ec2 - Prescription Opioid Use ec2 - Patient Portal Instructions ec2 - Leadership Thank You Letter ec2 Signatures: Miguelina Presley RN RN Isaias Rosales MD MD ec2
--- NOTE | 2024-07-21 23:30 | ER ---
Nurse's Notes [facility] Name: Kit Zhu Jr Age: 34 yrs Sex: Male : 1990 Arrival Date: 07/21/2024 Time: 23:08 Bed 6 Private MD: Diagnosis: Asymptomatic Hypertension Presentation: 07/21 23:15 Chief complaint: Patient states: "I checked my blood pressure at work today and it was ss 182/113. I was seen in the ER the other day and they diagnosed me with a URI and HTN." Pt reports his only complaint at this time is a salty taste in his mouth. Coronavirus screen: Client denies travel out of the [place] in the last 14 days. Ebola Screen: Patient denies exposure to infectious person. Patient denies travel to an Ebola-affected area in the 21 days before illness onset. Initial Sepsis Screen: Does the patient meet any 2 criteria? No. Patient's initial sepsis screen is negative. Does the patient have a suspected source of infection? No. Patient's initial sepsis screen is negative. Risk Assessment: Do you want to hurt yourself or someone else? Patient reports no desire to harm self or others. Onset of symptoms is unknown. 23:15 Method Of Arrival: Ambulatory ss 23:15 Acuity: ENRICO 3 ss Triage Assessment: 23:24 General: Appears obese. General: Appears in no apparent distress. Behavior is calm. br2 Pain: Denies pain. Historical: - Allergies: 23:16 NKA; ss 23:16 shrimp; ss - Home Meds: 23:16 Losartan [Active]; unknown abx [Active]; ss - PMHx: 23:16 epilepsy; Hypertensive disorder; ss - PSHx: 23:16 None; ss - Immunization history:: Client reports having NOT received the Covid vaccine. - Infectious Disease History:: Denies. - Social history:: Smoking status: Reported history of juuling and/or vaping. Screenin:23 [facility] ED Fall Risk Assessment (Adult) History of falling in the last 3 months, br2 including since admission No falls in past 3 months (0 pts). Abuse screen: Denies threats or abuse. Nutritional screening: No deficits noted. Tuberculosis screening: No symptoms or risk factors identified. 23:23 [facility] ED Fall Risk Assessment (Adult) Altered Elimination No (0 pt). br2 23:25 [facility] ED Fall Risk Assessment (Adult) History of falling in the last 3 months, br2 including since admission No falls in past 3 months (0 pts) Confusion or Disorientation Intoxicated or Sedated No (0 pts) Impaired Gait No (0 pts) Mobility Assist Device Used No (0 pt) Score/Fall Risk Level 0 - 2 = Low Risk Oriented to surroundings. Assessment: 23:27 Reassessment: Patient denies pain at this time. General: Appears in no apparent br2 distress. General: PT HAS CHECKED B/P 4 TIMES TODAY AND STARTED LOSARTAN YESTERDAY. CONCERNED THAT B/P IS STILL ELEVATED. PT STATES HE DIET HASN'T BEEN GOOD. . Pain: Denies pain. Cardiovascular: No deficits noted. Respiratory: No deficits noted. 23:37 Reassessment: Patient appears in no apparent distress at this time. Patient and/or jb4 family updated on plan of care and expected duration. Pain level reassessed. Patient is alert, oriented x 3, equal unlabored respirations, skin warm/dry/pink. Vital Signs: 23:15 Resp 16; Weight 136.08 kg; Height 6 ft. 0 in. ; Pain 0/10; ss 23:31 BP 156 / 102; Pulse 85; Resp 18; Temp 97.3; Pulse Ox 95% on R/A; br2 23:15 Body Mass Index 40.69 (136.08 kg, 182.88 cm) ss 23:15 Pain Scale: Adult ss ED Course: 23:10 Patient arrived in ED. im 23:10 Isaias Rosales MD is Attending Physician. ec2 23:16 Triage completed. ss 23:16 Arm band placed on right wrist. ss 23:19 Suresh Morillo, RN is Primary Nurse. jb4 23:22 Primary Nurse role handed off by Suresh Morillo, RN br2 23:22 Jordana Garcia, ARIELA is Primary Nurse. br2 23:25 No provider procedures requiring assistance completed. br2 23:26 Patient has correct armband on for positive identification. Bed in low position. Call br2 light in reach. Side rails up X 1. 23:35 Provided Education on: LOW SODIUM DIET..... br2 23:35 Patient did not have IV access during this emergency room visit. br2 Administered Medications: No medications were administered Medication: 23:26 VIS not applicable for this client. br2 Outcome: 23:29 Discharge ordered by . ec2 23:34 Discharged to home br2 23:34 Condition: good 23:34 Discharge instructions given to patient, Instructed on discharge instructions, medication usage, Demonstrated understanding of instructions, follow-up care, medications, Prescriptions given X Following a medical screening exam, the patient was provided information regarding alternative care sites and resources available per registration personnel. 23:37 Patient left the ED. jb4 Signatures: Miguelina Presley RN RN Suresh Morillo RN RN jb4 Dulce Maria Harper Edwin, MD MD ec2 Jordana Garcia RN RN br2
[2024-07-22 00:47] VITALS: BP 156/102; TEMP 97.3; O2SAT 95
== END 2024-07-21 23:37 | disposition home or self-care (01) ==
LOC: ER 23:08
DX: I10 Essential (primary) hypertension (principal)
CPT/HCPCS: 99283

== ENCOUNTER 2025-01-09 09:36 | Emergency (ER) | payer OTHER ==
--- OUTSIDE RECORDS SUMMARY | 2025-01-09 09:48 | XMS REPORT | Continuity of Care Document ---
Author Name Unknown Address [address] [place] [address] thconnect Address [address] [place] [id number] Care Team Providers Care Clinical Research Specialist Name Role Phone Unavailable Unavailable Unavailable
[2025-01-09] MEDS ORDERED: LOSARTAN POTASSIUM 50 MG TABLET ONE (10:29)
[2025-01-09] MEDS ORDERED: AMLODIPINE 10 MG TAB ONE (10:31)
--- NOTE | 2025-01-09 11:18 | ER ---
Nurse's Notes [facility] Name: Kit Zhu Jr Age: 34 yrs Sex: Male : 1990 Arrival Date: 01/09/2025 Time: 09:36 Bed DX3 Private MD: Diagnosis: Diffuse otitis externa, right ear;Acute upper respiratory infection, unspecified;Essential (primary) hypertension Presentation: 01/09 10:23 Chief complaint: Patient states: Left ear pain, cough x 5 days, hx of HTN, ran out of jl7 Losartan a month ago. Coronavirus screen: At this time, the client does not indicate any symptoms associated with coronavirus-19. Ebola Screen: No symptoms or risks identified at this time. Initial Sepsis Screen: Does the patient meet any 2 criteria? No. Patient's initial sepsis screen is negative. Does the patient have a suspected source of infection? No. Patient's initial sepsis screen is negative. Risk Assessment: Do you want to hurt yourself or someone else? Patient reports no desire to harm self or others. Onset of symptoms was January 05, 2025. 10:23 Method Of Arrival: Ambulatory [facility] 10:23 Acuity: ENRICO 4 jl7 Triage Assessment: 10:26 General: Appears in no apparent distress. uncomfortable, Behavior is calm, cooperative, jl7 appropriate for age. Pain: Complains of pain in left ear. EENT: Reports pain in left ear. Historical: - Allergies: 10:26 NKA; jl7 10:26 shrimp; jl7 - Home Meds: 10:26 losartan 100 mg daily [Active]; jl7 - PMHx: 10:26 epilepsy; Hypertensive disorder; jl7 - Immunization history:: Adult Immunizations unknown. - Infectious Disease History:: Denies. - Social history:: Smoking status: Patient denies any tobacco usage or history of. Screenin:20 [facility] ED Fall Risk Assessment (Adult) History of falling in the last 3 months, jl7 including since admission No falls in past 3 months (0 pts) Confusion or Disorientation No (0 pts) Intoxicated or Sedated No (0 pts) Impaired Gait No (0 pts) Mobility Assist Device Used No (0 pt) Altered Elimination No (0 pt) Score/Fall Risk Level 0 - 2 = Low Risk Oriented to surroundings, Maintained a safe environment. 10:20 Abuse screen: Denies threats or abuse. Denies injuries from another. Nutritional jl7 screening: No deficits noted. Tuberculosis screening: No symptoms or risk factors identified. Assessment: 10:34 Reassessment: pt refusing covid/flu swab, ERD notified. jl7 Vital Signs: 10:23 BP 190 / 123; Pulse 94; Resp 17; Temp 97.2; Pulse Ox 97% ; Weight 136.08 kg; Height 6 jl7 ft. 0 in. ; Pain 6/10; 11:51 BP 180 / 101; Pulse 98; Resp 15; Temp 97; Pulse Ox 97% ; jl7 10:23 Body Mass Index 40.69 (136.08 kg, 182.88 cm) jl7 10:23 Pain Scale: Adult jl7 ED Course: 09:38 Patient arrived in ED. mr 09:47 Luís Sales MD is Attending Physician. calvin 10:26 Triage completed. jl7 10:26 Arm band placed on right wrist. jl7 11:16 Carmen Covarrubias MD is Referral Physician. calvin 11:17 Abhijeet Moran DO is Referral Physician. calvin 11:22 Chest Pa And Lat (2 Views) XRAY In Process Unspecified. EDMS 11:51 Becka Morales, ARIELA is Primary Nurse. jl7 11:55 Patient has correct armband on for positive identification. Provided Education on: jl7 Hypertension management, risks associated with uncontrolled hypertension. 11:55 No provider procedures requiring assistance completed. Patient did not have IV access jl7 during this emergency room visit. Administered Medications: 10:34 Drug: Losartan PO 100 mg PO once Route: PO; jl7 11:54 Follow up: Response: No adverse reaction; Blood pressure is lowered jl7 10:34 Drug: Norvasc PO 10 mg PO once Route: PO; jl7 11:54 Follow up: Response: No adverse reaction; Blood pressure is lowered jl7 11:06 Not Given (Duplicate Order): [id number] mg PO once calvin 11:53 Drug: Ibuprofen PO 800 mg PO once Route: PO; jl7 11:54 Follow up: Response: Medication administered at discharge. jl7 11:54 Drug: ofloxacin Drops 0.3 % 4 drops Ophthalmic once; TO RIGHT EAR Route: Ophthalmic; jl7 Site: right eye; 11:54 Drug: LevOfloxacin PO 750 mg PO once Route: PO; jl7 11:54 Follow up: Response: Medication administered at discharge. jl7 Medication: 11:51 VIS not applicable for this client. [email or web address] Outcome: 11:18 Discharge ordered by . calvin 11:55 Discharged to home ambulatory, jl7 11:55 Condition: stable 11:55 Discharge instructions given to patient, Instructed on discharge instructions, follow up and referral plans. medication usage, Demonstrated understanding of instructions, follow-up care, medications, Prescriptions given X 5 11:56 Patient left the ED. jl7 Signatures: Dispatcher [employer] EDMS Luís Sales MD MD cha Rivera, Mary, Reg Reg Becka Dove, RN RN jl7 Corrections: (The following items were deleted from the chart) 10:35 10:23 Acuity: ENRICO 3 jl7 jl7
--- NOTE | 2025-01-09 11:18 | EDPHYS ---
Physician Documentation [facility] Name: Kit Zhu Jr Age: 34 yrs Sex: Male : 1990 Arrival Date: 01/09/2025 Time: 09:36 Bed DX3 Private MD: ED Physician Luís Sales HPI: 01/09 11:12 This 34 yrs old Male presents to ER via Ambulatory with complaints of Ear calvin Pain, Cough. 11:12 The patient presents with pain, swelling, tenderness. The complaints affect the right calvin ear. Severity of symptoms: At their worst the symptoms were moderate in the emergency department the symptoms are unchanged. The patient has experienced similar episodes in the past, a few times. Historical: - Allergies: 10:26 NKA; jl7 10:26 shrimp; jl7 - Home Meds: 10:26 losartan 100 mg daily [Active]; jl7 - PMHx: 10:26 epilepsy; Hypertensive disorder; jl7 - Immunization history:: Adult Immunizations unknown. - Infectious Disease History:: Denies. - Social history:: Smoking status: Patient denies any tobacco usage or history of. ROS: 11:13 Constitutional: Negative for fever, chills, and weight loss, Eyes: Negative for injury, calvin pain, redness, and discharge, Neck: Negative for injury, pain, and swelling, Cardiovascular: Negative for chest pain, palpitations, and edema, Abdomen/GI: Negative for abdominal pain, nausea, vomiting, diarrhea, and constipation, Back: Negative for injury and pain, : Negative for injury, bleeding, discharge, and swelling, MS/Extremity: Negative for injury and deformity, Skin: Negative for injury, rash, and discoloration, Neuro: Negative for headache, weakness, numbness, tingling, and seizure, Psych: Negative for depression, anxiety, suicide ideation, homicidal ideation, and hallucinations, Allergy/Immunology: Negative for hives, rash, and allergies, Endocrine: Negative for neck swelling, polydipsia, polyuria, polyphagia, and marked weight changes, Hematologic/Lymphatic: Negative for swollen nodes, abnormal bleeding, and unusual bruising, 11:13 ENT: Positive for ear pain, sore throat, 11:13 Respiratory: Positive for cough, "sounds productive", Exam: 11:13 Constitutional: This is a well developed, well nourished patient who is awake, alert, calvin and in no acute distress. Head/Face: Normocephalic, atraumatic. Eyes: Pupils equal round and reactive to light, extra-ocular motions intact. Lids and lashes normal. Conjunctiva and sclera are non-icteric and not injected. Cornea within normal limits. Periorbital areas with no swelling, redness, or edema. Neck: Trachea midline, no thyromegaly or masses palpated, and no cervical lymphadenopathy. Supple, full range of motion without nuchal rigidity, or vertebral point tenderness. No Meningismus. Chest/axilla: Normal chest wall appearance and motion. Nontender with no deformity. No lesions are appreciated. Cardiovascular: Regular rate and rhythm with a normal S1 and S2. No gallops, murmurs, or rubs. Normal PMI, no JVD. No pulse deficits. Abdomen/GI: Soft, non-tender, with normal bowel sounds. No distension or tympany. No guarding or rebound. No evidence of tenderness throughout. Back: No spinal tenderness. No costovertebral tenderness. Full range of motion. Male : Normal genitalia with no discharge or lesions. Skin: Warm, dry with normal turgor. Normal color with no rashes, no lesions, and no evidence of cellulitis. MS/ Extremity: Pulses equal, no cyanosis. Neurovascular intact. Full, normal range of motion., bilateral aka Neuro: Awake and alert, GCS 15, oriented to person, place, time, and situation. Cranial nerves II-XII grossly intact. Motor strength 5/5 in all extremities. Sensory grossly intact. Cerebellar exam normal. Normal gait. Psych: Awake, alert, with orientation to person, place and time. Behavior, mood, and affect are within normal limits. 11:13 ENT: Ear canal(s): erythema, that is moderate, of the right canal, foreign body, is not appreciated, purulent discharge, is not appreciated, swelling, that is moderate, Nose: nasal drainage, Posterior pharynx: Tonsils: bilaterally enlarged, with erythema, Uvula: midline, swelling, is not appreciated, erythema, that is mild, Vital Signs: 10:23 BP 190 / 123; Pulse 94; Resp 17; Temp 97.2; Pulse Ox 97% ; Weight 136.08 kg; Height 6 jl7 ft. 0 in. ; Pain 6/10; 11:51 BP 180 / 101; Pulse 98; Resp 15; Temp 97; Pulse Ox 97% ; jl7 10:23 Body Mass Index 40.69 (136.08 kg, 182.88 cm) jl7 10:23 Pain Scale: Adult jl7 MDM: 09:47 Medical Screening Exam initiated [facility] 01/09 10:03 Order name: Chest Pa And Lat (2 Views) XRAY calvin Administered Medications: 10:34 Drug: Losartan PO 100 mg PO once Route: PO; jl7 11:54 Follow up: Response: No adverse reaction; Blood pressure is lowered jl7 10:34 Drug: Norvasc PO 10 mg PO once Route: PO; jl7 11:54 Follow up: Response: No adverse reaction; Blood pressure is lowered jl7 11:06 Not Given (Duplicate Order): [id number] mg PO once calvin 11:53 Drug: Ibuprofen PO 800 mg PO once Route: PO; jl7 11:54 Follow up: Response: Medication administered at discharge. jl7 11:54 Drug: ofloxacin Drops 0.3 % 4 drops Ophthalmic once; TO RIGHT EAR Route: Ophthalmic; jl7 Site: right eye; 11:54 Drug: LevOfloxacin PO 750 mg PO once Route: PO; jl7 11:54 Follow up: Response: Medication administered at discharge. jl7 Disposition Summary: 01/09/25 11:18 Discharge Ordered Notes: Location: Home calvin Problem: new calvin Symptoms: have improved calvin Condition: Stable calvin Diagnosis - Diffuse otitis externa, right ear calvin - Acute upper respiratory infection, unspecified calvin - Essential (primary) hypertension calvin Followup: calvin - With: Private Physician - When: 2 - 3 days - Reason: Recheck today's complaints, Continuance of care, Re-evaluation by your physician Followup: calvin - With: Carmen Covarrubias MD - When: 2 - 3 days - Reason: Recheck today's complaints, Re-evaluation by your physician Followup: calvin - With: Abhijeet Moran DO - When: 2 - 3 days - Reason: Recheck today's complaints, Re-evaluation by your physician Discharge Instructions: - Discharge Summary Sheet calvin - Ear Drops, Adult calvin - Otitis Externa calvin - Hypertension, Adult calvin - Otitis Externa, [id number] calvin - Upper Respiratory Infection, Adult, Fuza-uk-Vtvy calvin - Hypertension, Adult, Faiu-[id number] calvin - Cough, Adult, [id number] calvin - How to Take Your Blood Pressure, [id number] calvin - Cough, Adult calvin - Managing Your Hypertension [facility] Forms: - Medication Reconciliation Form calvin - Antibiotic Education calvin - Prescription Opioid Use calvin - Patient Portal Instructions calvin - Leadership Thank You Letter calvin - Work release form eb Prescriptions: - losartan 100 mg Oral tablet - take 1 tablet ORAL route once; 20 tablet; Refills: 0, Product Selection [facility] Permitted - ofloxacin 0.3 % Ophthalmic drops - instill 2 drop OPHTHALMIC route 4 times per day for 7 days TO RIGHT EAR; 10 calvin milliliter; Refills: 0, Product Selection Permitted - Norvasc 5 mg Oral Tablet - take 1 tablet ORAL route once daily; 20 tablet; Refills: 0, Product Selection [facility] Permitted - Bactrim DS 800-160 mg Oral Tablet - take 1 tablet ORAL route every 12 hours for 10 days; 20 tablet; Refills: 0, [facility] Product Selection Permitted - levofloxacin 750 mg Oral tablet - take 1 tablet ORAL route once daily; 9 tablet; Refills: 0, Product Selection [facility] Permitted Signatures: Dispatcher [employer] EDMS Luís Sales MD MD cha Leal, Jahala, RN RN jl7 Corrections: (The following items were deleted from the chart) 10:03 10:03 Chest Pa And Lat (2 Views)+RAD.RAD.BRZ ordered. EDMS EDMS 11:55 10:03 COVID-19 Ag + Flu A+B Ag+[id number].LAB.[id number] ordered. EDMS EDMS
[2025-01-09] MEDS ORDERED: OFLOXACIN OPH 0.3%-5 ML BTL OTIC ONE (11:30)
[2025-01-09] MEDS ORDERED: levoFLOXacin 750 MG TAB ONE (11:34)
[2025-01-09] MEDS ORDERED: IBUPROFEN 400 MG TAB ONE (11:34)
--- NOTE | 2025-01-09 11:49 | RAD REPORT ---
Procedure: Chest Pa And Lat (2 Views) HISTORY: Cough COMPARISON: none FINDINGS: The lungs appear clear of acute infiltrate. No significant pleural effusion noted. The heart is normal size. IMPRESSION: No acute abnormality is displayed.
[2025-01-09 12:00] VITALS: O2SAT 97
[2025-01-09 12:02] VITALS: BP 180/101; TEMP 97
== END 2025-01-09 11:56 | disposition home or self-care (01) ==
LOC: ER 09:36
DX: H60.311 Diffuse otitis externa, right ear (principal); J06.9 Acute upper respiratory infection, unspecified; I10 Essential (primary) hypertension
CPT/HCPCS: 71046; 99283